=== PATIENT | female | born 1955 | race Caucasian/White ===

== ENCOUNTER 2017-01-23 01:38 | Emergency (ER) | payer BC ==
--- NOTE | 2017-01-26 19:08 | ER ---
ADMIT: 01/23/2017 RM/LOC: ER [facility] MR#: [id number] [address] [address] ERICA MILLS [address] [place] [address] Emergency Room Report SEX: F AGE: 61 : 1955 DATE: 01/23/2017 HISTORY OF PRESENT ILLNESS: The patient is a 61-year-old female with a past medical history of hypertension, came to the ER with chief complaint of frontal headache and also bilateral eye pressure and eye pain and pressure in the frontal area and transient vertigo. The patient states for the last few weeks, she had feeling pressure on the face and has been on treatment for acute sinusitis. The patient also complains of nausea without vomiting. The patient states she has similar episodes of headaches in the past and also at the same time had some bilateral shoulder and cervical paraspinal pain and states that every time she had similar headaches. Before starting the headaches, she could feel it that it is getting started, aura. At the moment, pain is mostly in the frontal area and that the severity is moderate to severe per patient. The patient denies any neck stiffness or fever at home. PHYSICAL EXAMINATION: VITAL SIGNS: The patient was afebrile. GENERAL: In moderate distress. HEENT: There were no meningismus. Pupils were 3 mm, reactive to light bilaterally. The patient had no nystagmus. The patient had negative Weston- Hallpike test. Hearing was equal bilaterally grossly. The patient had normal TMs without any abnormality. Examination of the nares and oropharynx was also noncontributory. NECK: The patient had no murmurs radiating to neck. LUNGS/HEART: Equal bilateral breath sounds without any murmurs. ABDOMEN: Soft. NEUROLOGICAL: Gait was normal. Motor and sensory and the rest of the neurological exam was grossly normal. The patient had normal visual field. EMERGENCY ROOM COURSE: The patient received IV fluids, Reglan, and Benadryl IV. After administration of proparacaine ophthalmic in both eyes, the ADMIT: 01/23/2017 RM/LOC: LISA [facility] MR#: [id number] [address] [address] ERICA MILLS [address] [place] [address] Emergency Room Report SEX: F AGE: 61 : 1955 pressure of both eyes were checked, on the right was 15 mmHg and on the left was 70 mmHg. The patient also received sumatriptan subcutaneously. Considering that the patient's vertigo only elicits intermittently and it is after the patient is moving or changing the position, they last just a few seconds and resolve by itself and the patient has no hearing symptoms and the patient has no tinnitus, the patient can be discharged to home with prescription. of meclizine p.o. The patient states previously she had been on meclizine and it helped her significantly. The patient has close followup with the primary doctor and was discharged to home with diagnoses of acute and chronic cephalgia and vertigo to be followed up by the primary physician as needed. At the moment, the patient has no vertigo and the pain is substantially controlled. Declan Gaxiola MD/ nate JOB #: [id number] CC: Declan Gaxiola MD, Attending Physician Hector Maldonado MD, Family Physician
[2017-02-05] MEDS ORDERED: VALIUM-DPS5 MG PO (13:54)
[2017-02-05] MEDS ORDERED: ZANAFLEX4 MG PO ×2 (13:54)
[2017-02-05] MEDS ORDERED: ZESTRIL DPS10 MG PO (13:55)
[2017-02-05] MEDS ORDERED: LOVASTATIN10 MG PO (13:55)
[2017-02-05] MEDS ORDERED: ANTIVERT-DPS25 MG PO (13:55)
[2017-02-05] MEDS ORDERED: TOPROL XL DPS50 MG PO (13:55)
[2017-02-05] MEDS ORDERED: MOBIC DPS7.5 MG PO (13:55)
[2017-02-05] MEDS ORDERED: TYLENOL DPS325 MG PO (13:56)
[2017-02-05] MEDS ORDERED: ALLEGRA DPS180 MG PO (13:56)
== END 2017-01-23 04:08 | disposition home or self-care (01) ==
LOC: ER 01:38
DX: R42 Dizziness and giddiness (principal); R51 Headache; I10 Essential (primary) hypertension; Z90.710 Acquired absence of both cervix and uterus; Z79.899 Other long term (current) drug therapy; Z88.8 Allergy status to other drugs, medicaments and biological substances

== ENCOUNTER → 2017-01-28 | Outpatient (CLI) | payer BC ==
[~2017-01-28] MED LIST: ALLEGRA DPS180 MG PO; ANTIVERT-DPS25 MG PO; LOVASTATIN10 MG PO; MOBIC DPS7.5 MG PO; TOPROL XL DPS50 MG PO; TYLENOL DPS325 MG PO; VALIUM-DPS5 MG PO; ZANAFLEX4 MG PO; ZESTRIL DPS10 MG PO
== END | disposition home or self-care (01) ==
LOC: RAD.S 01-25 11:54 → PTH.S 08:00 → RAD.S 08:30
DX: G43.909 Migraine, unspecified, not intractable, without status migrainosus (principal); R55 Syncope and collapse; M50.322 Other cervical disc degeneration at C5-C6 level; M50.321 Other cervical disc degeneration at C4-C5 level; W19.XXXA Unspecified fall, initial encounter

== ENCOUNTER 2017-01-31 09:48 | Inpatient (IN) | payer BC ==
[~2017-01-31] VITALS: Ht 172.7 cm; Wt 80.7 kg
--- NOTE | ~2017-01-31 | ECH ---
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 Summary Technically adequate exam. The estimated left ventricular ejection fraction is 60-65%. Mild concentric left ventricular hypertrophy. Diastolic assessment reveals Grade II pseudonormal diastolic function . Mild mitral regurgitation by color Doppler. Mild tricuspid regurgitation by color Doppler. Recommendation The patient will be given the results of this study by the physician who ordered the exam. Procedure Type of Study TTE procedure:Echo Complete SF. Procedure Date Date: 02/01/2017 Start: 03:49 Technical Quality: Adequate visualization Indications:Chest pain and Hypertension. Appropriate Use Criteria: 9 Height: 68 inches Weight: 175 pounds BSA: 1.93 m Rhythm: Sinus bradycardia HR: 55 bpm BP: 126/63 mmHg M-Mode/2D Measurements LV Diastolic Dimension: 3.8 cm LV Systolic Dimension: 2.97 cm LV Septum Diastolic: 1.19 cm LV PW Diastolic: 1.21 cm AO Root Dimension: 3.2 cm Cardiac Output: 4.06 l/min LA Dimension: 2.81 cm Cardiac Index: 2.1 l/min*m RV Diastolic Dimension: 3.38 cm LA volume index: 24 ml/m LVOT: 1.98 cm LVOT VTI: 24 cm RV Base: 3.2 cm LV Stroke volume: 73.86 ml RV Mid: 2.1 cm LV Stroke volume index: 38.27 ml/m RV Length: 5.5 cm TAPSE: 2.6 cm Doppler Measurements AV Peak Velocity: 1.02 m/s MV Peak E-Wave: 0.63 m/s AV Peak Gradient: 4.16 mmHg MV Peak A-Wave: 0.54 m/s AV Mean Gradient: 2.1 mmHg MV E/A Ratio: 1.17 LVOT Peak Velocity: 0.97 m/s MV P1/2t: 68.2 msec AV Area (Continuity):2.84 cm TR Velocity:2.25 m/s MV Deceleration Time: 235 msec TR Gradient:20.25 mmHg MV Area (PHT): 3.23 cm Estimated RAP:5 mmHg Estimated RVSP: 25 mmHg Estimated PASP: 25.25 mmHg RA Area: 11.85 cm Findings Left Ventricle The left ventricle is normal in size . Mild concentric left ventricular hypertrophy. Diastolic assessment reveals Grade II pseudonormal diastolic function . Right Ventricle Normal right ventricle structure and function. Left Atrium Normal left atrial size. Right Atrium Normal right atrial size. Mitral Valve Normal mitral valve structure and function. Mild mitral regurgitation by color Doppler. Aortic Valve Normal aortic valve structure and function. Tricuspid Valve Normal tricuspid valve structure and function. Mild tricuspid regurgitation by color Doppler. Pulmonic Valve The pulmonic valve is not well visualized. Pericardial Effusion No evidence of pericardial effusion. Miscellaneous Visualized portions of the aortic root and ascending aorta appear normal in size. Pleural Effusion No evidence of pleural effusion. Contractility Score LV regional wall motion:(0-Non visualized 1-Normal 2-Hypokinesis 3-Akinesis 4-Dyskinesis 5-Aneurysm) Signature
--- NOTE | 2017-02-01 08:14 | HP ---
ADMIT: 01/31/2017 RM/LOC: 312 [facility] MR#: [id number] [address] [address] ERICA MILLS [address] [place] [address] History and Physical SEX: F AGE: 61 : 1955 DATE OF SERVICE: CHIEF COMPLAINT: 3-week history of increasing weakness and vertigo/dizziness. Possible recent sinus infection. Onset of severe rash and worsening weakness with hypotension starting last night. HISTORY OF PRESENT ILLNESS: Ms. 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 She has been quite a healthy woman. She reports that about 3 weeks ago she had the onset of a lot of dizziness - apparently similar to an episode that she had 3 or 4 years ago that apparently was diagnosed as benign positional vertigo. She had weakness with the dizziness and just did not feel well. She had "been sleeping a lot." She was in the ER twice and has seen Dr. Hector Maldonado in our office x3 in the interim. She was most recently diagnosed with sinus infection and placed on a course of Augmentin. She finished the Augmentin on Wednesday night (it is now Wednesday noon) and starting last evening "I broke out in a rash and got weaker and more dizzy." Her symptoms were more severe, so she came to the emergency room this morning with those complaints. At the time of presentation, she had obvious hives and was hypotensive in the range of 82/50. Respirations were 16, she was afebrile, pulse of 80, O2 sats of 96% on room air and she had had no swelling of her lips or tongue. No respiratory difficulties. At 10:45, she was given epinephrine 0.5 mL IM x1 and within 0.5 hour to an hour, her hives faded. She experienced some chest pain with the epinephrine - apparently previous heart catheterization has shown "a small vessel with a little bit of blockage in it that they cannot stent." The pain resolved with the appropriate treatment in the emergency room. Initially there was concern about possible sepsis given the story, but her sepsis markers were essentially benign with a white count of 10,900, hemoglobin of 12.9, a minimal left shift on the differential. Procalcitonin of 0.15 ng/mL and a lactic acid of 1.8 mmol/L. Chest x-ray was read as normal. She has received a total of 5 L of fluids here in the emergency room now and also has received 20 mg of IV Decadron. Other workup in the ER including a 12-lead EKG was benign. Repeat blood pressures at about 10:00 a.m. were 75/46 and by 10:45 was 104/52. O2 sats remain 99% on room air and she remained in a sinus rhythm. However, given her persistent "dizziness and weakness" and her low blood pressure, she is being admitted - initially to ICU because of the hypotension. PAST MEDICAL HISTORY: Childhood and early development apparently normal. The patient denies any serious childhood illnesses and, in fact, has considered herself quite healthy. She has a history of DJD of her neck, and in fact, as part of her ER workup on January 28, 2017, she had an MRI of her brain without contrast, that was read as "negative study" and the "paranasal sinuses visualized appear clear." C-spine MRI at that time on 01/28 showed "no abnormal marrow signal or abnormal cord signal, multilevel degenerative disk disease, with mild disk bulges and bony ridging, most prominent at C4-5 and C5- 6, right more advanced than the left." Small vessel coronary artery disease, lipid abnormality, systemic hypertension, (over the last 4-5 years). ADMIT: 01/31/2017 RM/LOC: 312 [facility] MR#: [id number] [facility] [address] [address] ERICA MILLS [address] [place] [address] History and Physical SEX: F AGE: 61 : 1955 PAST SURGICAL HISTORY: Includes a previous hysterectomy, some foot surgery, and a heart catheterization. CURRENT MEDICATIONS: 1. Diazepam 5 mg 1/2 to 1 tab t.i.d. p.r.n. 2. Tizanidine 4 mg 1/2 to 1 tab t.i.d. 3. Meloxicam 7.5 mg daily p.r.n. headache or neck pain. 4. Meclizine 25 mg q.12 hours for dizziness. 5. Lovastatin 10 mg at bedtime. 6. Metoprolol succinate ER 50 mg daily. 7. Hydrochlorothiazide 12.5 mg daily. 8. Lisinopril 10 mg at bedtime. 9. As noted above, has recently finished a prescription of Augmentin 875. ALLERGIES: THERE ARE NO ALLERGIES REPORTED TO FOOD OR MEDICATION. SOCIAL HISTORY: Reveals that she is recently retired, as noted above. She and her live independently in their home. She has never been a smoker. She drinks alcohol rarely. She likes to exercise with aerobic work in her basement and does a lot of walking and prior to the onset of her symptoms 3 weeks ago had maintained a strong exercise program. She has not been able to keep going with this over the last 3 weeks because of her current symptoms. FAMILY HISTORY: Noncontributory. REVIEW OF SYSTEMS: Times 10 points is otherwise negative. She has had no unexplained visual change. She has had no obvious fever or chills. She has not had any chest pain or difficulty breathing prior to the onset of her current symptoms. She states bladder and bowel functions have been normal. She does have a history of cervicogenic headaches/possible vascular headache. Otherwise she has no history for neurologic or psychiatric disease. PHYSICAL EXAM: GENERAL: Now she is lying quietly on the ER gurney in no acute distress and states she feels a bit better. VITAL SIGNS: Her last blood pressures have been in the 100-110 systolic range, but her MAPs are still in the mid 50s. Pulse has been in the 90-130 range (was higher shortly after epinephrine), respiratory rate is about 20, her O2 sats have been in the high 90s on room air. HEENT: Essentially negative. Her pupils are equal and they react briskly to light. EOMs are intact. I really do not detect any obvious nystagmus and she reports feeling "a little more dizzy when I look to the right." Tongue protrudes and uvular retraction midline. NECK: Supple. No bruits. No thyromegaly. LUNGS: Clear to auscultation. CARDIAC: Exam shows regular rate without murmur. ABDOMEN: Soft. No masses, tenderness, or organomegaly. EXTREMITIES: Normal. ADMIT: 01/31/2017 RM/LOC: 312 [facility] MR#: [id number] [address] [place] [id number] ERICA MILLS [address] [place] [address] History and Physical SEX: F AGE: 61 : 1955 NEUROLOGIC: Normal within her ability to test. IMPRESSION: 1. Apparent anaphylactic reaction to Augmentin with hives and significant hypotension. 2. A 3-week history of persistent dizziness/vertigo/malaise with possible recent sinus infection. 3. History of "mild" coronary artery disease. 4. Hyperlipidemia. 5. Systemic hypertension. 6. Degenerative disease of the cervical spine. PLAN: Because her MAPs are still low, we will admit her to ICU. We will cut back now on her fluids as she has had 5+ liters now. We will just maintain her on IV Decadron, oral Zantac/Benadryl and we will continue observation in the ICU. Further treatment will depend on her response to initial therapy. We will seek ENT consult for her in the a.m. Clifford Spencer MD/ nate JOB #: [id number] CC: Hector aMldonado, Attending Physician Hector Maldonado, Family Physician
--- NOTE | 2017-02-04 13:05 | CO ---
ADMIT: 01/31/2017 RM/LOC: 625 [facility] MR#: [id number] [address] [address] ERICA MILLS [address] [place] [address] Consultation SEX: F AGE: 61 : 1955 DATE OF CONSULTATION: 02/01/2017 ATTENDING PHYSICIAN: Hector Maldonado CONSULTING PHYSICIAN: Mahamed Schneider MD REASON FOR CONSULT: Chest pain. This is Carlyn Henley RN, scribing for Dr. Mahamed Schneider. HISTORY OF PRESENT ILLNESS: Erica is a very pleasant, 61-year-old female, I have been asked to see in Cardiology consultation by Dr. Hector Maldonado for chest discomfort. She has no prior history of significant coronary artery disease. She does have history of nonobstructive disease per cardiac catheterization in 2012 with 30% mid circumflex disease, and small apical LAD possible occluded branch at that time. Echo at that time showed ejection fraction of 60% with no significant valvular abnormalities. She also has history of hypertension, hyperlipidemia, follows with Dr. Maldonado for this. She has not been seen in clinic since 2013 at [facility]. She has had good control of her blood pressure and lipids through primary care. Erica has been up until the last 3 weeks a very active individual, exercising with walking, and doing aerobics without any issues. Unfortunately, she developed severe vertigo, suspected to be vestibular neuritis per primary care and has been undergoing physical therapy, medication, and treatment without resolution. She did have an MRI of her head that showed normal sinuses. This has limited her quite a bit. They then thought that she would have sinus infection. She was placed on Augmentin, however, it sounds like she got a reaction to that medication and developed a rash. She presented to the emergency room yesterday where she was given epinephrine for her hypotension and severe hives, this brought her blood pressure up and she did improve from the hives significantly. However, she then developed chest discomfort that first began as a burning, then she said, she had an ache in her chest, 7 to 8/10, up to a 10/10. This continued until she received IV pain medication x2 which did ease up the pain. She has had no further chest discomfort since that time. Cardiac enzymes x1 have been negative so far. She does have some mild EKG changes with some ST depression in anterolateral leads. Looking back at previous EKGs performed about a month ago, this was similar at that time. Currently, she is pain free. She denies any shortness of breath, palpitations, presyncope, or peripheral edema. PAST MEDICAL HISTORY: 1. Hypertension. 2. Hyperlipidemia. 3. Chronic headaches. 4. Dizziness. 5. Osteoarthritis. 6. Degenerative joint disease of her cervical spine. PAST SURGICAL HISTORY: Includes hysterectomy, D and C, and foot surgery. ADMIT: 01/31/2017 RM/LOC: 625 [facility] MR#: [id number] [address] [place] [id number] ERICA MILLS [address] [place] [address] Consultation SEX: F AGE: 61 : 1955 ALLERGIES: NEW DIAGNOSED ALLERGY TO AUGMENTIN WITH HIVES AND HYPOTENSION. MEDICATIONS: Current medications include: 1. Metoprolol ER 50 daily. 2. Lisinopril 10 daily. 3. Hydrochlorothiazide 10 daily. 4. Pravastatin 10 mg at bedtime. 5. Jada 180 daily. 6. Benadryl p.o., 25 mg q.6 hours. 7. Claritin 10 daily. 8. Pepcid 20 p.o. b.i.d. 9. Potassium chloride 40 mEq given IV drip. FAMILY HISTORY: No first line members with heart disease or stroke. SOCIAL HISTORY: Erica is . She lives at home with her . 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 Up until last 3 weeks with her vertigo, she is doing lots of exercises with aerobics and walking. She follows a low-cholesterol diet. She denies any caffeine use. She has rare alcohol use. No tobacco use. No drug use. REVIEW OF SYSTEMS: GENERAL: Denies fatigue, fever, chills, sweats, rash, or weight loss. EYES: She wears corrective lenses. Denies glaucoma and cataracts. THROAT, MOUTH, AND EARS: Positive cough for the last few weeks, but denies any sinus congestion, sore throat, or hearing loss. PULMONARY: Denies cough, sputum production, asthma, emphysema or bronchitis. Denies snoring loudly, wakefulness at night, or fatigue upon awakening. GASTROINTESTINAL: Denies heartburn or difficulty swallowing. No change in bowel habits. Denies dark or bloody stools. No history of ulcers, hiatal hernia, or gallbladder or liver disease. GENITOURINARY: Denies dysuria, hematuria, nocturia, urinary tract infection, or kidney stones. Denies history of renal insufficiency or failure. MUSCULOSKELETAL: History of degenerate joint disease in the neck with some pain with that as well as in her hips bilaterally. ENDOCRINE: Denies history of thyroid dysfunction or diabetes. HEMATOLOGIC: Denies history of anemia, easy bruising, or cancer. NEUROLOGIC: Dizziness, suspected vestibular neuritis per primary care. Chronic headaches over the last few weeks. No stroke or seizure. PSYCHIATRIC: Denies history of mental illness or feelings of depression. PHYSICAL EXAMINATION: VITAL SIGNS: Blood pressure 150/83, heart rate 70, respirations 18, temperature 97.0, oxygenation saturation 98% on room air. SKIN: [place], warm and dry. EYES: Sclerae clear. No xanthelasmas. ENT: Oral mucosa is pink and moist. No jugular venous distention or carotid bruits. ADMIT: 01/31/2017 RM/LOC: 625 [facility] MR#: [id number] [address] [address] ERICA MILLS [place] [address] [place] [phone] Consultation SEX: F AGE: 61 : 1955 CHEST: Respirations are even and unlabored. Lungs are clear to auscultation. HEART: Regular rate and rhythm. Normal S1, S2. No murmurs, rubs or gallops. ABDOMEN: Soft and nontender. MUSCULOSKELETAL: Gait is normal. EXTREMITIES: Peripheral pulses palpable. No clubbing, cyanosis or edema. PSYCHIATRIC: Alert and oriented. Mood and affect are appropriate. DIAGNOSTIC DATA: Sodium 141, potassium 4.4, BUN 18, creatinine 1.0, glucose 154, magnesium 2.0. CK 37, MB less than 0.5, troponin less than 0.015, INR 1.12. White blood cell count 6.7, hemoglobin 10.8, hematocrit 32.3, and platelets 184. ASSESSMENT AND PLAN: 1. Chest pain after epinephrine dose. Her enzymes have been negative x1. EKG has some lateral ST depression that had been present on old EKGs as well. I will check echocardiogram for any wall motion abnormalities, valvular abnormalities, or decreased ejection fraction. If this is normal, then I would recommend outpatient stress test and follow as an outpatient at that point. 2. Hives. 3. Vertigo. 4. Nonobstructive coronary disease by catheterization in 2012. 5. Hyperlipidemia. Thank you for the consultation. I have read and agree with the documentation that has been completed regarding this visit. By signing this record, I attest that the documentation was completed in my physical presence and is an accurate record of the encounter. Carlyn Henley RN / Mahamed Schneider MD / nate JOB #: [id number] CC: Hector Maldonado, Attending Physician Hector Maldonado, Family Physician
--- NOTE | 2017-02-05 08:05 | CO ---
ADMIT: 01/31/2017 RM/LOC: 625 [facility] MR#: [id number] [address] [place] [phone] ERICA MILLS [address] [place] [address] Consultation SEX: F AGE: 61 : 1955 DATE OF CONSULTATION: 02/03/2017 ATTENDING PHYSICIAN: Hector Maldonado CONSULTING PHYSICIAN: Blanquita Woods MD REASON FOR CONSULTATION: Neck pain with headaches. HISTORY OF PRESENT ILLNESS: The patient is a pleasant 61-year-old female admitted with chest discomfort. She was referred to me for evaluation of neck pain. The patient has on and off neck pain for several years, got worse 3 weeks ago, associated with left-sided neck pain and bilateral shoulder pain. Now, pain getting better, but still has left-sided headache which is constant, 5/10 on visual analogue scale, throbbing, associated with nausea. At present, she is not on any opioid medication or neuropathic pain medication. PAST MEDICAL HISTORY: Significant for hypertension, hyperlipidemia, chronic headaches, dizziness, osteoarthritis, and DJD of cervical spine. PAST SURGICAL HISTORY: Hysterectomy, foot surgery. ALLERGIES: AUGMENTIN. MEDICATIONS: Reviewed from the list. REVIEW OF SYSTEMS: As per HPI. Other than that, all other systems reviewed and noted to be negative. PHYSICAL EXAMINATION: VITAL SIGNS: Stable. HEENT: Eyes, PERRLA. EOMI. CHEST: Lungs clear. HEART: Regular rate and rhythm. MUSCULOSKELETAL: Gait is normal. EXTREMITIES: Reflexes 1+. Peripheral pulses palpable. PSYCHIATRIC: Alert and oriented x3. CERVICAL: Facet loading with 10 degree of extension. Bilateral upper trapezius trigger point present. ADMIT: 01/31/2017 RM/LOC: 625 [facility] MR#: [id number] [address] [address] ERICA MILLS [address] [place] [address] Consultation SEX: F AGE: 61 : 1955 ASSESSMENT: 1. Myofascial pain. 2. Cervical disk degeneration. 3. Chronic neck pain. PLAN: 1. I did trigger point injection to bilateral upper trapezius with lidocaine. The patient had good pain relief. 2. I will send the patient to physical therapy for myofascial release, stretching and therapeutic exercise. 3. Zanaflex 4 mg p.o. at bedtime. 4. Follow up in pain clinic in 2 weeks. Blanquita Woods MD/ nate JOB #: [id number] CC: Hector Maldonado, Attending Physician Hector Maldonado, Family Physician
[2017-02-05] MEDS ORDERED: VALIUM-DPS5 MG PO (13:54)
[2017-02-05] MEDS ORDERED: ZANAFLEX4 MG PO ×2 (13:54)
[2017-02-05] MEDS ORDERED: MOBIC DPS7.5 MG PO (13:55)
[2017-02-05] MEDS ORDERED: LOVASTATIN10 MG PO (13:55)
[2017-02-05] MEDS ORDERED: ZESTRIL DPS10 MG PO (13:55)
[2017-02-05] MEDS ORDERED: ANTIVERT-DPS25 MG PO (13:55)
[2017-02-05] MEDS ORDERED: TOPROL XL DPS50 MG PO (13:55)
[2017-02-05] MEDS ORDERED: ALLEGRA DPS180 MG PO (13:56)
[2017-02-05] MEDS ORDERED: TYLENOL DPS325 MG PO (13:56)
--- NOTE | 2017-02-08 07:06 | CO ---
ADMIT: 01/31/2017 RM/LOC: 625 [facility] MR#: [id number] [address] [address] ERICA MILLS [address] [place] [address] Consultation SEX: F AGE: 61 : 1955 DATE OF CONSULTATION: 02/01/2017 ATTENDING PHYSICIAN: Hector Maldonado CONSULTING PHYSICIAN: Godwin Bird MD CHIEF COMPLAINT: Balance disturbance and headache. HISTORY OF PRESENT ILLNESS: Ms. Mills is 61 years old. She developed symptoms about 3 weeks ago with persistent headache, generalized; some neck stiffness; and dizziness described as vertigo. She states about 3 years ago she had vertigo that responded to Semont type maneuver through physical therapy. She denies any hearing change at this time although states she gets an intermittent staticky sound in the ears that is bilateral, but usually when she moves her neck. Workup thus far has included MRI scan of the brain which was normal. Her paranasal sinuses and inner ears appear normal as well as middle ear and mastoids. Cervical MRI scan shows changes predominantly in the low neck with osteophytic changes and slight compression of the anterior spinal cord at C6-7. She does describe neck pain and stiffness. She describes worsening in her balance symptoms when she looks down or tilts her head down and it is often associated with nausea. Through the week, she has had intermittent vomiting. She denies diplopia or visual loss. Denies fever. Laboratory testing includes CBC which is essentially normal. Procalcitonin level which is normal and chemistry profiles are normal. She presented to the Emergency Room with dehydration, required intravenous fluids which did improve blood pressure as she was significantly hypotensive at time of admission. She denies extremity numbness or pain (both upper and lower are without symptoms). She, however, states she has had low back pain for many years, predominantly right-sided. She denies recent injury or head trauma. Denies tick bite or mosquito bites. Present medications, allergies, ROS, and PFSH are summarized in medical information sheet. PHYSICAL EXAM: GENERAL: Ms. Mills is alert, oriented. She is in no acute distress, but resting comfortably, sitting in chair with a neck pillow in position. HEENT: Her pupils are equal. Extraocular movements intact. She has no spontaneous nor gaze nystagmus. Her ear canals are clear. TMs are intact, transparent. No middle ear effusion or inflammation. Nose, mouth, and pharynx clear. NECK: Tender low neck and suboccipital, left side more so than right, but without obvious neck muscle spasm. There are no palpable neck masses, adenopathy, or thyromegaly. IMPRESSION: Vertiginous type dizziness associated with nausea, intermittent vomiting, and headache, cause uncertain. Cervical vertigo, I believe, is more ADMIT: 01/31/2017 RM/LOC: 625 [facility] MR#: [id number] [address] [place] [id number] ERICA MLILS [address] [place] [address] Consultation SEX: F AGE: 61 : 1955 likely than labyrinthitis. Labyrinthitis could explain the balance symptoms, nausea, and vomiting but would not explain the headaches. With her inflammation and infection markers being negative, I did not feel further laboratory studies needed. I think it is unlikely we are dealing with early Lyme's or West Nile type problems. I spoke with Dr. Anthony Maldonado with my impressions, he is in agreement with the cervical vertigo process and has recommended proceeding with spine evaluation. I discussed with Ms. Mills the possibility of VNG to assess the labyrinthine function, but since headaches are a significant factor with the symptomatology, I think inner ear inflammation or infection is less likely culprit. Godwin Bird MD/ nate JOB #: [id number] CC: Hector Maldonado, Attending Physician Hector Maldonado, Family Physician
--- NOTE | 2017-02-13 08:19 | ER ---
ADMIT: 01/31/2017 RM/LOC: ER [facility] MR#: [id number] [address] [address] ERICA MILLS [address] [place] [id number] Emergency Room Report SEX: F AGE: 61 : 1955 DATE: 01/31/2017 ADDENDUM: This 61-year-old white female coming in with initially low blood pressure, dizziness. Also noticed that she had diffuse rash, which was essentially welts wheal and then she had confounding factors that she was on several blood pressure medicines usually for hypertension which were metoprolol, hydrochlorothiazide, and lisinopril. Recently given diazepam for dizziness. She had been treated with Augmentin for an antibiotic. I do believe that was indication of her anaphylaxis. She received a total of 4 L of fluid. We gave her 0.5 mg of epi IM 1:1000 x2, gave her 20 of Decadron. We have stabilized her pressure. She also became a little tachy from the epi and then complained of some chest pain. We repeated the EKG that was negative. She has been given 1 mg of Dilaudid for the pain, essentially that went away. She had no known history of coronary disease. Besides her anaphylaxis, which we think is the Augmentin and subsequent hypotension and rash, she has showed some early indication of renal insufficiency, 1.9 which is the highest that it has been recently. This also may be from decreased fluid intake. Potassium is 3.1 which indicates hypokalemia as the diagnosis not helping her overall problem here. This again is more than likely due to hydrochlorothiazide diuretic. At this time, her rate is below 100. Her pain is under control. Her troponin was negative which was part of the sepsis protocol, which we initially ran on her. She has normal lactate and otherwise negative. At this time, I spoke with Dr. Spencer, he will need to admit her. CONDITION ON DISCHARGE: Critical but stable at this time. Zuhair Haro MD/ nate JOB #: [id number] CC: Zuhair Haro MD, Attending Physician Hector Maldonado MD, Family Physician
--- NOTE | 2017-03-26 19:05 | DS ---
ADMIT: 01/31/2017 RM/LOC: 625 [facility] MR#: [id number] [address] [address] ERICA MILLS [address] [place] [address] General Discharge Summary SEX: F AGE: 61 : 1955 ADMISSION DATE: 01/31/2017 DISCHARGE DATE: 02/04/2017 CHIEF COMPLAINT: Erica is a 61-year-old white female, admitted to [facility] by Dr. Spencer with weakness, fatigue, vertigo with a rash with hypotension. She had recently had sinus infection, was seen in the ER for a rash and was treated and ultimately admitted for further evaluation and management. She had received 5 L of fluid in the ER along with 20 mg of IV Decadron due to hypotension and ER assessment. She was subsequently admitted for further evaluation and management, was admitted to the ICU. HOSPITAL COURSE: On admission, IV was continued at 100 mL an hour by Dr. Spencer. Routine ICU admission was ordered and she was given Zofran and diazepam along with 8 mg of Decadron q.6 hours. On the morning of February 01, her vital signs were stable. She was afebrile on room air. Blood cultures were negative, but severe tremor was noted along with her dizziness. It was felt the tremor and dizziness were worsened by the IV steroids. Her IV was decreased to 50 mL an hour. Elevated sugars secondary to the IV steroids was noted. She was transferred to [facility], and [facility] was consulted for evaluation of chest pain with a history of known coronary artery disease. Decadron was discontinued, and she was started on Jada or Claritin for her allergies. On Cardiology consultation, she was noted to be 4 L positive on fluids. As noted, she received 5 L in the ER. Echocardiogram was ordered, and a scheduled stress test was to be arranged with [facility]. On February 02, vital signs were stable. Blood cultures remain negative. Echo was normal. Her headache with neck pain and dizziness were noted, and Dr. Woods was formally consulted for her neck pain and headache. Elevated cardiac enzymes were noted, and confirmation of [facility] is warranted and this was confirmed. Cardiology felt that the elevated troponin was likely secondary to the epinephrine and steroids in the ER. Telemetry was discontinued on the . The patient was seen by pain clinic and started on Zanaflex for muscle spasms. Of note, she had been on that as an outpatient. On February 04, the patient's vital signs were stable. Cultures remained negative. She was overall feeling better and was discharged to home. DISCHARGE MEDICATIONS: Discharge med list: 1. Zanaflex 4 mg at bedtime 1-1/2 to 1 b.i.d. p.r.n. muscle spasm. 2. Diazepam 5 mg 1/2 to 1 t.i.d. p.r.n. dizziness. 3. Meloxicam 7.5 mg b.i.d. 4. Meclizine 25 mg b.i.d. p.r.n. dizziness. 5. Lovastatin 10 mg at bedtime. 6. Metoprolol succinate ER 50 mg daily. 7. Lisinopril 10 mg daily. 8. Jada 180 mg daily. 9. Tylenol p.r.n. LABORATORY AND X-RAY DATA: Include hemoglobin 10.2 on February 02. On January 31; white count 10.9, hemoglobin 12.9, and platelet count 228,000. On February 02; sodium 145, potassium 4.4, BUN of 25, creatinine 1.1 with glucose 127. On January ADMIT: 01/31/2017 RM/LOC: 625 [facility] MR#: [id number] 26[address] [facility] [address] [place] [phone] ERICA MILLS [address] [place] [address] General Discharge Summary SEX: F AGE: 61 : 1955 ; sodium 134, potassium 3.1, BUN of 33, glucose 120 with a creatinine 1.9. Cardiac enzymes show elevated troponin Is on February 01 and of 0.624, 0.464, and 0.322 with elevated MBs of 0.63 and 0.52 on February 01 with CPKs of 67. Blood cultures were negative. Chest x-ray on January 31 was negative. Echocardiogram on February 01 was normal other than grade 2 pseudonormal diastolic function with an ejection fraction of 60% to 65%. FINAL DISCHARGE DIAGNOSES: Include: 1. Cephalgia with labyrinthitis. 2. Chest pain rule out myocardial infarction. 3. Prerenal azotemia. 4. Hives secondary to Augmentin. 5. Benign essential hypertension. 6. Hyperlipidemia. 7. Impaired glucose tolerance with history of known nonobstructive coronary artery disease. PROCEDURES: Include echocardiogram and medical management of her allergic reaction with IV fluids and hydration. Please see her hospital record for the details. Hector Maldonado MD/ nate JOB #: [id number] CC: Hector Maldonado MD, Attending Physician Hector Maldonado MD, Family Physician
== END 2017-02-04 11:20 | disposition home or self-care (01) | DRG 916 ==
LOC: ER 09:48 → 3ICU 12:45 → 6PED 02-01 11:12
PROVIDERS: ADMIT Family Medicine
PROC: 3E023BZ Introduction of Anesthetic Agent into Muscle, Percutaneous Approach (ICD-10-PCS; principal; 2017-02-03)
DX: T88.6XXA Anaphylactic reaction due to adverse effect of correct drug or medicament properly administered, initial encounter (principal); N17.9 Acute kidney failure, unspecified; I95.9 Hypotension, unspecified; T36.0X5A Adverse effect of penicillins, initial encounter; I10 Essential (primary) hypertension; E87.6 Hypokalemia; M47.812 Spondylosis without myelopathy or radiculopathy, cervical region; M50.30 Other cervical disc degeneration, unspecified cervical region; I25.10 Atherosclerotic heart disease of native coronary artery without angina pectoris; E78.5 Hyperlipidemia, unspecified; E86.0 Dehydration; R42 Dizziness and giddiness; M19.90 Unspecified osteoarthritis, unspecified site; R07.9 Chest pain, unspecified